=== PATIENT | female | born 1960 | race African-American/Black ===

== ENCOUNTER 2017-05-20 20:38 | Emergency (ER) | payer OTHER ==
--- NOTE | 2017-05-20 21:31 | ER Document Report ---
ED Headache - General Mode of Arrival: Ambulatory Information source: Patient TRAVEL OUTSIDE OF THE [place] IN LAST 30 DAYS: No <LENNIE MCLAUGHLIN - Last Filed: 05/21/17 04:26> <ANANTH NICOLAS - Last Filed: 05/21/17 04:30> <ALDAIR BELLA - Last Filed: 05/21/17 10:33> - General Chief Complaint: Headache Stated Complaint: HEADACHE Time Seen by Provider: 05/20/17 20:52 Notes: Patient is a 56 year old female with a history of a ruptured aneurysm(1990), Craniectomy, aneurysm clip and hypertension presents to the emergency department complaining of a headache onset 2 months ago worsening today. Patient states her pain is located primarily behind her left eye and radiates into her left ear,and left neck. Patient states her pain is exacerbated with leaning forward. Patient states her pain is similar to her ruptured aneurysm but is significantly less severe further stating she had a syncopal episode and total left sided weakness with her prior aneurysm. Patient has been seeing Dr. Rahman to be worked up for her auditory hallucinations which have been going on for several months, states that she had a CAT scan approximately 2 weeks ago which showed a possible aneurysmal dilatation of the left internal carotid artery distally any region that was just proximal to the prior aneurysm clip. Patient has not had a further evaluation for this possible aneurysm as she is allergic to IV dye, it causes her throat to swell up and close. Rather than pretreating her to do a CT angiogram as an outpatient she has been referred to neurosurgery advised and to see if they want to possibly do an angiogram or an arteriogram there. She is awaiting the completion of her referral from [facility]. Patient has been concerned since then that she may have an aneurysm that is getting ready to rupture. Patient is concerned that her worsening symptoms may represent a rupture of her aneurysm. Patient denies blurry vision, numbness or any changes in taste. (LENNIE MCLAUGHLIN) - Related Data Allergies/Adverse Reactions: cortisone [Cortisone] Allergy (Verified 08/04/14 21:12) Iodinated Contrast- Oral and IV Dye [IV Dye, Iodine Containing] Allergy ( Verified 08/04/14 16:42) Shellfish * [Shellfish] Allergy (Verified 08/04/14 16:42) Past Medical History - General Information source: Patient - Social History Smoking Status: Never Smoker Cigarette use (# per day): No Chew tobacco use (# tins/day): No Smoking Education Provided: No Frequency of alcohol use: None Family History: Reviewed & Not Pertinent <ARNOLDOLENNIE VORA - Last Filed: 05/21/17 04:26> Review of Systems - Review of Systems Constitutional: No symptoms reported EENT: See HPI, Eye pain, Ear pain. denies: Blurred vision Cardiovascular: No symptoms reported Respiratory: No symptoms reported Gastrointestinal: No symptoms reported Genitourinary: No symptoms reported Female Genitourinary: No symptoms reported Musculoskeletal: No symptoms reported Skin: No symptoms reported Hematologic/Lymphatic: No symptoms reported Neurological/Psychological: See HPI, Hallucinations, Headaches -: Yes All other systems reviewed and negative <ARNOLDOCRISTINEHERRERA - Last Filed: 05/21/17 04:26> Physical Exam <ARNOLDO,CRISTINEHERRERA - Last Filed: 05/21/17 04:26> <ANANTH NICOLAS - Last Filed: 05/21/17 04:30> <ALDAIR BELLA - Last Filed: 05/21/17 10:33> - Vital signs Vitals: Pulse Ox 96 05/20/17 20:56 - Notes Notes: GENERAL: Alert, interacts well. No acute distress. HEAD: Normocephalic, atraumatic. Tender to percussion to the left maxillary sinus. EYES: Pupils equal, round, and reactive to light. Extraocular movements intact. ENT: Oral mucosa moist, tongue midline. Nares patent, no nasal septal hematoma, TM's intacts. NECK: Full range of motion. Supple. Trachea midline. LUNGS: Clear to auscultation bilaterally, no wheezes, rales, or rhonchi. No respiratory distress. HEART: Regular rate and rhythm. No murmurs, gallops, or rubs. ABDOMEN: Soft, non-tender. Non-distended. Bowel sounds present in all 4 quadrants. EXTREMITIES: Moves all 4 extremities spontaneously. No edema, radial and dorsalis pedis pulses 2/4 bilaterally. No cyanosis. NEUROLOGICAL: Alert and oriented x3. Normal speech. Cranial nerves II through XII grossly intact. Biceps and patellar DTRs 2+ bilaterally. PSYCH: Normal affect, normal mood. SKIN: Warm, dry, normal turgor. No rashes or lesions noted. (LENNIE MCLAUGHLIN) Course - Laboratory Result Diagrams: 05/20/17 21:30 05/20/17 21:30 <LENNIE MCLAUGHLIN - Last Filed: 05/21/17 04:26> - Laboratory Result Diagrams: 05/20/17 21:30 05/20/17 21:30 <ANANTH NICOLAS - Last Filed: 05/21/17 04:30> - Laboratory Result Diagrams: 05/20/17 21:30 05/20/17 21:30 <ALDAIR BELLA - Last Filed: 05/21/17 10:33> - Re-evaluation Re-evalutation: 05/21/17 02:34 CBC unremarkable, coags normal, CMP unremarkable, CT scan of the head does not show any signs of bleeding. Discussed with patient and family member that there is a miss rate of between 2 and 8% for subarachnoid hemorrhage particularly if this is a sentinel bleed from her suspected aneurysm and that we should perform a lumbar puncture to completely rule out the possibility of subarachnoid hemorrhage, patient and family member are agreeable to this. Lumbar puncture was attempted by myself at the bedside however given the patient 's body habitus I was unable to obtain any spinal fluid, and kept encountering bone. After 3 attempts I ceased my attempts. We are unable to have a behavioral health assistant come in and perform this lumbar puncture under fluoroscopy at this time, they will be in between 7 and 8:00 in the morning. I discussed this case with Dr. Louis the neurosurgeon regional manager from [facility], he agrees based off of my descriptions that there is low likelihood for aneurysmal rupture at this time however he also agrees that the patient does need a lumbar puncture to 100% rule this out. He agrees that the patient does not need to be transferred to their facility at this time to have an emergent lumbar puncture performed, agrees with having lumbar puncture under fluoroscopy performed later this morning. Agrees with transfer should we find evidence of subarachnoid hemorrhage in the lumbar puncture. Patient and family members aware of this plan, headache is currently a 1 out of 5, still no new neurologic symptoms. Patient will be signed out to Dr. Ga who will then sign out the patient to Dr. Bella the 6 AM doc and he will continue to follow from there. 05/21/17 02:50 If headache continues to improve and the LP is negative for signs of subarachnoid hemorrhage, I suggest discharging to follow-up with neurosurgery as an outpatient as previously referred by PCP and prescribing compazine and benadryl pills for intermittent headache at home. (ANANTH NICOLAS) 05/21/17 06:00 56-year-old female with headache and known small aneurysm. Concern for possible SAH. Pt seen by Dr. Nicolas last night and awaiting LP results by IR to assess for RBCs and xanthrochromia. Pt's headache has improved. 05/21/17 10:30 Pt's headache returned slightly after LP. Provided her with another headache cocktail due to her last one was 10 hours ago. She feels much better and headache resolved. LP results do not show any evidence of meningitis or SAH. Instructed her to follow-up with neurosurgery/neurology as already scheduled. Given strict return precautions and she understands. (ALDAIR BELLA) - Vital Signs Vital signs: Temp Pulse Resp BP Pulse Ox 98.0 F 17 119/82 97 05/21/17 04:01 05/21/17 09:22 05/21/17 09:22 05/21/17 09:22 - Laboratory Laboratory results interpreted by me: 05/21/17 09:01 CSF Total Protein 67 H Procedures - Lumbar Puncture Lumbar puncture Consent obtained: Yes Lumbar puncture pre-procedure: Sterile PPE donned, Chloraprep applied, Sterile drapes applied Patient position: Sitting Needle size: 22 Lumbar puncture location: L4-L5 Anesthetic type: 1% Lidocaine mL's of anesthetic: 15 Amount/type of drainage: 0 Number of attempts: 3 Complications: Yes - unable to obtain CSF <ANANTH NICOLAS - Last Filed: 05/21/17 04:30> Discharge <LENNIE MCLAUGHLIN - Last Filed: 05/21/17 04:26> <ANANTH NICOLAS - Last Filed: 05/21/17 04:30> <ALDAIR BELLA - Last Filed: 05/21/17 10:33> - Discharge Clinical Impression: Headache Qualifiers: Headache type: unspecified Headache chronicity pattern: unspecified pattern Intractability: not intractable Qualified Code(s): R51 - Headache Condition: Stable Disposition: HOME, SELF-CARE Additional Instructions: There are no signs of a ruptured aneurysm on your lumbar puncture CAT scan today. Take the Benadryl and Compazine as instructed to help with your headache and follow-up with your neurosurgeon and neurologist. Return to the ER for worsening symptoms or any other concerns. HEADACHE: The physician does not feel that the headache you are experiencing has a serious underlying cause. Most headaches are due to emotional stress, with resultant muscle tension (tension headache). Occasionally, headaches are secondary to changes in the blood vessels of the scalp (vascular headache and migraine headache). Sometimes, a headache is the first symptom of another developing illness, such as a viral infection. You have no evidence of stroke, bleeding, meningitis, or other serious cause of your headache. The treatment of headaches varies with the severity and cause of the pain. Not all headaches need pain shots. In fact, there is evidence that using narcotics for headaches may make them worse in the long run. The physician will determine the therapy that's in your best interest. If you develop a fever, if the headache is different from any you've previously experienced, or if the headache progressively worsens, then call your physician at once or go to the emergency room. USE OF DIPHENHYDRAMINE: Diphenhydramine (Benadryl) is an antihistamine and has been recommended to help treat your headache and to prevent side effects of other medications used to treat headaches. The medication can be repeated four times daily. Age Elixir (12.5 mg/tsp) 25 mg pill adult 1-2 tabs Antihistamines may cause drowsiness, especially with the first dose. Do not operate machinery or drive while under the effects of the medication. Do not combine the medication with alcohol, or with any other medication without talking to your doctor. FOLLOW-UP CARE: If you have been referred to a physician for follow-up care, call the physician s office for an appointment as you were instructed or within the next two days. If you experience worsening or a significant change in your symptoms, notify the physician immediately or return to the Emergency Department at any time for re-evaluation. Prescriptions: Diphenhydramine HCl [Benadryl 25 mg Capsule] 1 cap PO Q4 PRN #1 pkg PRN Reason: Prochlorperazine Maleate [Compazine 10 mg Tablet] 10 mg PO ASDIR PRN #10 tablet PRN Reason: Referrals: BARTOLO SAMUELS DO [Primary Care Provider] - Follow up as needed STANLEY RAHMAN MD [EMERITUS] - Follow up as needed Scribe Documentation - Scribe Written by Scribe:: Paulina Cordova, 05/20/2017 21:42 acting as scribe for :: Maria Isabel <LENNIE MCLAUGHLIN - Last Filed: 05/21/17 04:26>
[2017-05-20 21:38] LABS: ABSOLUTE EOSINOPHILS # (AUTO) 0.1 10^3/uL (0.0-0.6); ABSOLUTE LYMPHOCYTES (AUTO) 1.7 10^3/uL (0.5-4.7); ABSOLUTE MONOCYTES (AUTO) 0.4 10^3/uL (0.1-1.4); ABSOLUTE NEUT (AUTO) 3.2 10^3/uL (1.7-8.2); BASOPHILS % (AUTO) 0.5 % (0-2); EOSINOPHILS % (AUTO) 1.6 % (0-6); HEMATOCRIT 40.7 % (36.0-47.0); HEMOGLOBIN 13.9 g/dL (12.0-15.5); LYMPHOCYTES % (AUTO) 32.2 % (13-45); MEAN CORPUSCULAR HEMOGLOBIN 29.2 pg (27.0-33.4); MEAN CORPUSCULAR HGB CONC 34.1 g/dL (32.0-36.0); MEAN CORPUSCULAR VOLUME 86 fl (80-97); MONOCYTES % (AUTO) 6.9 % (3-13); PLATELET COUNT 274 10^3/uL (150-450); RED BLOOD COUNT 4.75 10^6/uL (3.72-5.28); RED CELL DISTRIBUTION WIDTH 13.2 % (11.5-14.0); SEGMENTED NEUTROPHILS % (AUTO) 58.8 % (42-78); TOTAL CELLS COUNTED % (AUTO) 100 %; WHITE BLOOD COUNT 5.4 10^3/uL (4.0-10.5)
[2017-05-20 21:49] LABS: INTERNATIONAL RATION (INR) 0.86; PROTHROMBIN TIME 12.4 SEC (11.4-15.4)
[2017-05-20 21:50] LABS: ALANINE AMINOTRANSFERASE 19 U/L (9-52); ALBUMIN 4.4 g/dL (3.5-5.0); ALKALINE PHOSPHATASE 89 U/L (38-126); ANION GAP 14 (5-19); ASPARTATE AMINO TRANSFERASE 19 U/L (14-36); BILIRUBIN,DIRECT 0.1 mg/dL (0.0-0.4); BILIRUBIN,TOTAL 0.2 mg/dL (0.2-1.3); BLOOD UREA NITROGEN 19 mg/dL (7-20); CALCIUM 9.9 mg/dL (8.4-10.2); CARBON DIOXIDE 25 mmol/L (22-30); CHLORIDE 103 mmol/L (98-107); GLUCOSE 105 mg/dL (75-110); POTASSIUM 3.7 mmol/L (3.6-5.0); SODIUM 141.9 mmol/L (137-145); TOTAL PROTEIN 7.3 g/dL (6.3-8.2)
--- NOTE | 2017-05-20 22:05 | RADIOLOGY REPORT (SQ) ---
EXAM DESCRIPTION: CT HEAD WITHOUT COMPLETED DATE/TIME: 05/20/2017 9:42 pm REASON FOR STUDY: pain behind left eye, h/o aneurysm COMPARISON: 08/04/2014 TECHNIQUE: Axial images acquired through the brain without intravenous contrast. Images reviewed wi th bone, brain and subdural windows. Images stored on PACS. All CT scanners at this facility use dose modulation, iterative reconstruction, and/or weight based d osing when appropriate to reduce radiation dose to as low as reasonably achievable (ALARA). [facility]: Dose Right [facility]: CareDose [facility]: Dose Right [facility]: Teradose 4D [facility]: Smart [employer] RADIATION DOSE: CT Rad equipment meets quality standard of care and radiation dose reduction techniq ues were employed. CTDIvol: 64.6 mGy. DLP: 1163 mGy-cm. mGy. LIMITATIONS: None. FINDINGS: VENTRICLES: Normal size and contour. CEREBRUM: No masses. No hemorrhage. No midline shift. No evidence for acute infarction. Normal gra y/white matter differentiation. No areas of low density in the white matter. CEREBELLUM: No masses. No hemorrhage. No alteration of density. No evidence for acute infarction. EXTRAAXIAL SPACES: No fluid collections. No masses. ORBITS AND GLOBE: No intra- or extraconal masses. Normal contour of globe without masses. CALVARIUM: Craniotomy changes on the left. PARANASAL SINUSES: No fluid or mucosal thickening. SOFT TISSUES: No mass or hematoma. OTHER: Aneurysm clip is present on the left. IMPRESSION: NO ACUTE INTRACRANIAL IMAGING FINDINGS. EVIDENCE OF ACUTE STROKE: NO. COMMENT: Quality ID # 436: Final reports with documentation of one or more dose reduction techniques (e.g., Automated exposure control, adjustment of the mA and/or kV according to patient size, use of iterative reconstruction technique) TECHNICAL DOCUMENTATION: JOB ID: [id number] [employer]- All Rights Reserved Reading location - IP/workstation name: [email or web address]
[2017-05-20] MEDS ORDERED: LIDOCAINE 1% INJ-PF (10 MG/ML) 30 ML SDV INJ ONE (22:22)
[2017-05-20] MEDS ORDERED: PROCHLORPERAZINE EDISYLATE INJ 10 MG/2 ML VIAL IV ONE (22:52)
[2017-05-20] MEDS ORDERED: DIPHENHYDRAMINE HCL 50 MG/ML VIAL IV ONE (22:52)
[2017-05-21] MEDS ORDERED: ONDANSETRON HCL INJ/PF 4 MG/2 ML SDV ONE
[2017-05-21] MEDS ORDERED: LIDOCAINE 1% INJ-PF (10 MG/ML) 30 ML SDV ONE (08:29)
[2017-05-21] MEDS ORDERED: DIPHENHYDRAMINE HCL 50 MG/ML VIAL IV ONE (09:23)
[2017-05-21] MEDS ORDERED: METOCLOPRAMIDE HCL INJ/PF 10 MG/2 ML SDV IV ONE (09:23)
[2017-05-21] MEDS ORDERED: NORMAL SALINE 1000 ML 1,000 ML IV ONE (09:23)
--- NOTE | 2017-05-21 09:50 | RADIOLOGY REPORT (SQ) ---
EXAM DESCRIPTION: LUMBAR PUNCTURE; FLUORO/NEEDLE PLACEMENT COMPLETED DATE/TIME: 05/21/2017 9:25 am REASON FOR STUDY: headache, possible sentinel bleed COMPARISON: CT brain 05/20/2017, 08/04/2014 FLUOROSCOPY TIME: 40 seconds 4 digital radiographic images saved to PACS. TECHNIQUE: Fluoroscopic guided lumbar puncture. LIMITATIONS: None. PROCEDURE: After written consent and assessment were obtained, the patient was brought into the fluo roscopy room and placed prone on the table. The patient's lower back was prepped in a sterile fashio n and an entry site was selected under live fluoroscopic guidance. The entry site was anesthetized wi th 1% lidocaine. A long 22 gauge gauge needle was advanced through the skin and into the thecal sac a t the left paracentral L3-4 level. After approximately 6 ml was drained, the needle was removed and a sterile bandage was placed of the site. Specimens were sent to the lab for testing. A fluoroscopi c spot image was saved to PACS confirming level access. FINDINGS: Clear CSF IMPRESSION: Lumbar puncture under fluoroscopy. No immediate complication. COMMENT: Patient medication list reviewed: Yes- Quality ID# [id number]:Eligible professional attests to doc umenting in the medical record they obtained, updated, or reviewed the patient's current medications. . Quality ID 145: Final reports for procedures using fluoroscopy that document radiation exposure laexander attila, or exposure time and number of fluorographic images (if radiation exposure indices are not avail able) TECHNICAL DOCUMENTATION: JOB ID: [id number] [employer]- All Rights Reserved Reading location - IP/workstation name: [email or web address]
--- NOTE | 2017-05-21 09:50 | RADIOLOGY REPORT (SQ) ---
EXAM DESCRIPTION: LUMBAR PUNCTURE; FLUORO/NEEDLE PLACEMENT COMPLETED DATE/TIME: 05/21/2017 9:25 am REASON FOR STUDY: headache, possible sentinel bleed COMPARISON: CT brain 05/20/2017, 08/04/2014 FLUOROSCOPY TIME: 40 seconds 4 digital radiographic images saved to PACS. TECHNIQUE: Fluoroscopic guided lumbar puncture. LIMITATIONS: None. PROCEDURE: After written consent and assessment were obtained, the patient was brought into the fluo roscopy room and placed prone on the table. The patient's lower back was prepped in a sterile fashio n and an entry site was selected under live fluoroscopic guidance. The entry site was anesthetized wi th 1% lidocaine. A long 22 gauge gauge needle was advanced through the skin and into the thecal sac a t the left paracentral L3-4 level. After approximately 6 ml was drained, the needle was removed and a sterile bandage was placed of the site. Specimens were sent to the lab for testing. A fluoroscopi c spot image was saved to PACS confirming level access. FINDINGS: Clear CSF IMPRESSION: Lumbar puncture under fluoroscopy. No immediate complication. COMMENT: Patient medication list reviewed: Yes- Quality ID# [id number]:Eligible professional attests to doc umenting in the medical record they obtained, updated, or reviewed the patient's current medications. . Quality ID 145: Final reports for procedures using fluoroscopy that document radiation exposure alexander attila, or exposure time and number of fluorographic images (if radiation exposure indices are not avail able) TECHNICAL DOCUMENTATION: JOB ID: [id number] [employer]- All Rights Reserved Reading location - IP/workstation name: [email or web address]
[2017-05-21 09:52] LABS: GLUCOSE,CSF 66 mg/dL (40-70); PROTEIN,CSF 67 mg/dL (12-60)
[2017-05-21 10:17] LABS: APPEARANCE ALL TUBES CLEAR; COLOR ALL TUBES COLORLESS; CSF TOTAL VOLUME 5.8 CC; CSF TUBE NUMBER 1; VOLUME TUBE 4 0.8 CC
[2017-05-21 10:19] LABS: RED BLOOD CELL,CSF 26 /uL (0-10)
[2017-05-21 10:20] LABS: APPEARANCE ALL TUBES CLEAR; COLOR ALL TUBES COLORLESS; CSF TOTAL VOLUME 5.8 CC; CSF TUBE NUMBER 4; RED BLOOD CELL,CSF 5 /uL (0-10); VOLUME TUBE 4 0.8 CC; WHITE BLOOD CELL,CSF 3 /uL (0-5)
[2017-05-21 10:21] LABS: WHITE BLOOD CELL,CSF 4 /uL (0-5)
[2017-05-21 10:28] VITALS: BP 120/88
== END 2017-05-21 11:21 | disposition home or self-care (01) ==
LOC: ER 20:38
PROC: 00JU3ZZ Inspection of Spinal Canal, Percutaneous Approach (ICD-10-PCS; principal; 2017-05-20)
DX: R51 Headache (principal); H92.09 Otalgia, unspecified ear; H57.10 Ocular pain, unspecified eye; R44.0 Auditory hallucinations; Z98.890 Other specified postprocedural states; Z86.73 Personal history of transient ischemic attack (TIA), and cerebral infarction without residual deficits; Z91.041 Radiographic dye allergy status; Z91.013 Allergy to seafood; Z88.8 Allergy status to other drugs, medicaments and biological substances
CPT/HCPCS: 96376; 99284; 96361; 96374; 96375; 36415; 87070; 87205; 85025; 85610; 89050; 82945; 84157; 80053; 77002; 62270 ×2; 70450; J1200 ×2; J3490 ×2; J2765; J0780; J2405; J7030